=== PATIENT | female | born 1985 | race Caucasian/White ===

== ENCOUNTER → 2019-09-15 09:47 | Outpatient (CLI) | payer OTHER, SELFPAY ==
[2019-09-16 06:30] LABS: COVID19 Sendout Not Detected (Not Detect)
== END ==
PROVIDERS: Visit Provider Physician Assistant
DX: Z34.90 Encounter for supervision of normal pregnancy, unspecified, unspecified trimester (principal); Z11.59 Encounter for screening for other viral diseases
CPT/HCPCS: 87635

== ENCOUNTER → 2019-09-22 19:50 | Outpatient (CLI) | payer OTHER, SELFPAY ==
[2019-09-22 21:48] LABS: COVID19 -Nasal RAPID Negative (Negative)
== END ==
PROVIDERS: Referring Provider Family Medicine; Visit Provider Family Medicine
DX: Z11.59 Encounter for screening for other viral diseases (principal)
CPT/HCPCS: 87635